=== PATIENT | female | born 2000 | race Caucasian/White ===

== ENCOUNTER → 2020-09-15 | Outpatient (CLI) | payer OTHER ==
[~2020-09-15] MED LIST: BACTRIM DS 8001 TA1 PO; CLARITIN10 MG PO; FLUTICASON0.05 MG/A2 NAS; KEFLEX500 MG PO; MELATONIN5 M2 PO; NORCO 325 MG-51 TAB PO; PROAIR HFA0.09 MG/AC INH; SYMBICORT1 AE1 INH; VITAMIN D400 I1 PO
== END | disposition home or self-care (01) ==
LOC: COVID19 12:30
PROVIDERS: ATTEND Family Medicine
DX: Z20.828 Contact with and (suspected) exposure to other viral communicable diseases (principal)

== ENCOUNTER → 2021-04-11 | Outpatient (CLI) | payer OTHER ==
[2021-04-11 10:39] LABS: BASO # 0.1 10*3/uL (0.0-0.1); BASO % 0.6 % (0.0-1.0); EOS # 0.2 10*3/uL (0.0-0.4); EOS % 1.7 % (1.0-4.0); HEMATOCRIT 45.5 % (37.0-47.0); LYMPH # 2.5 10*3/uL (1.3-4.4); LYMPH % 23.9 % (27.0-41.0); MEAN CELL VOLUME 96.8 fl (81.0-99.0); MEAN CORPUSCULAR HGB 32.8 pg (27.0-31.0); MEAN CORPUSCULAR HGB CONC 33.8 g/dl (33.0-37.0); MEAN PLATELET VOLUME 10.1 fl (9.6-12.3); MONO # 0.9 10*3/uL (0.1-1.0); MONO % 8.3 % (3.0-9.0); NEUT # 6.7 10*3/uL (2.3-7.9); NEUT % 65.2 % (47.0-73.0); PLATELET COUNT AUTOMATED 330 10*3/uL (130-400); RED CELL DISTRI WIDTH 12.4 % (0-14.5); RETICULOCYTE % 2.11 % (0.50-2.50); WHITE BLOOD COUNT 10.3 10*3/uL (4.8-10.8)
[2021-04-11 10:49] LABS: BILIRUBIN Negative (Negative); BLOOD Trace-Intact (Negative); CLARITY Clear (Clear); COLOR Yellow (Yellow); GLUCOSE Negative (Negative); KETONE Negative (Negative); LEUKO ESTERASE Negative (Negative); NITRITE Negative (Negative); UROBILINOGEN 0.2 E.U./dl (0.0-1.0)
[2021-04-11 11:15] LABS: ALBUMIN 4.1 gm/dl (3.1-4.5); ALKALINE PHOSPHATASE 75 U/L (45-117); BUN 12 mg/dl (7-24); CHLORIDE 104 mmol/L (98-107); CHOLESTEROL 158 mg/dL (<200); CREATININE 0.76 mg/dL (0.55-1.02); GAMMA GLUTAMYL TRANSPEPTIDASE 9 U/L (5-55); IRON 75 ug/dL (50-170); LDL CHOLESTEROL 101 mg/dL (9-159); POTASSIUM 3.8 mmol/L (3.5-5.1); SGOT/AST 9 IU/L (3-35); SGPT/ALT 20 U/L (12-78); SODIUM 139 mmol/L (136-145); T3 UPTAKE 33 % (31-39); THYROXINE (T4) TOTAL 9.8 ug/dl (4.8-13.9); TOTAL IRON BINDING CAPACITY 345 ug/dl (250-450); TOTAL PROTEIN 7.3 gm/dL (6.4-8.2); TRIGLYCERIDES 72 mg/dl (<150); URIC ACID 5.4 mg/dL (2.6-6.0)
[2021-04-11 11:21] LABS: B-hCG (QUALITATIVE) NEGATIVE (NEGATIVE)
[2021-04-11 11:25] LABS: BACTERIA 2+; WBC 0-2 wbc/hpf (0-5)
[2021-04-11 11:26] LABS: BETA-HCG, QUANT < 1.0 mIU/mL (1-3)
[2021-04-11 11:30] LABS: FERRITIN 14.8 ng/mL (10.0-291.0)
[2021-04-12 06:08] LABS: RHEUMATOID ARTHRITIS FACTOR <10.0 IU/mL (0.0-13.9)
[2021-04-12 15:07] LABS: ANTI-DSDNA ANTIBODIES 1 IU/mL (0-9)
== END | disposition home or self-care (01) ==
LOC: LAB 10:13
PROVIDERS: ATTEND Family Medicine
DX: E55.9 Vitamin D deficiency, unspecified (principal); R74.8 Abnormal levels of other serum enzymes; R53.83 Other fatigue; R79.89 Other specified abnormal findings of blood chemistry